=== PATIENT | male | born 1960 ===

== ENCOUNTER 2022-07-08 06:48 | Inpatient (IN) ==
[2022-07-01 12:34] LABS: Basophils % 0.5 % (0.0-0.8); Eosinophils # 0.2 10*3/uL (0.0-0.87); Eosinophils % 2.4 % (0.00-10.9); Hematocrit 43.6 VOL% (42.0-52.0); Hemoglobin 13.5 GM/DL (14.0-18.0); Immature Granulocytes % 0.3 %; Immature Granulocytes Absolute 0.02 #; Lymphocytes # 2.5 10*3/uL (1.4-4.0); Lymphocytes % 33.2 % (21.2-54.2); Mean Corpuscular Volume 82.9 FL (87-102); Monocytes # 0.7 10*3/uL (0.11-0.8); Monocytes % 9.6 % (1.7-12.7); Platelet Count 235 T/CUMM (130-400); Red Blood Count 5.26 MC/CUMM (3.8-5.5); Red Cell Distribution Width 17.3 % (9.3-17.3); White Blood Count 7.4 T/CUMM (4-12)
[2022-07-01 12:41] LABS: INR 0.9; PT Patient Result 10.5 SECS (10.1-12.1)
[2022-07-01 12:54] LABS: Alanine Aminotransferase 27 U/L (16-61); Albumin 3.4 G/DL (3.4-5.0); Alkaline Phosphatase 80 U/L (45-117); Aspartate Amino Transferase 17 U/L (0-37); Bilirubin,Total < 0.39 MG/DL (0.20-1.00); Blood Urea Nitrogen 12 MG/DL (7-18); Calcium 8.9 MG/DL (8.5-10.1); Carbon Dioxide 27 MMOL/L (21-32); Chloride 110 MMOL/L (98-107); Glucose 151 MG/DL (74-106); Osmolality,Calculated 285.1 MOS/KG (273-304); Potassium 4.4 MMOL/L (3.5-5.1); Sodium 142 MMOL/L (136-145); Total Protein 6.9 G/DL (6.4-8.2)
[~2022-07-08 06:48] MED LIST: ceFAZolin 2,000 MG/50 ML DUPLEX IV ONE
[2022-07-08] MEDS ORDERED: LACTATED RINGERS 1,000 ML IV SCH (07:00)
[2022-07-08] MEDS ORDERED: FAMOTIDINE 20 MG TABLET PO ONE (07:51)
[2022-07-08] MEDS ORDERED: DIAZEPAM 5 MG TABLET PO ONE (07:51)
[2022-07-08] MEDS ORDERED: ONDANSETRON 4 MG/2 ML VIAL ONE (08:28)
[2022-07-08] MEDS ORDERED: HEPARIN 10,000 UNIT/10 ML VIAL ONE (08:28)
[2022-07-08] MEDS ORDERED: SEVOFLURANE 1 UNIT/15 MINUTE INH ONE (08:28)
[2022-07-08] MEDS ORDERED: LIDOCAINE 2% 5 ML VIAL ONE (08:28)
[2022-07-08] MEDS ORDERED: propofoL 200 MG/20 ML VIAL IV ONE (08:28)
[2022-07-08] MEDS ORDERED: fentaNYL 100 MCG/2 ML VIAL ONE (08:29)
[2022-07-08] MEDS ORDERED: MIDAZOLAM 2 MG/2 ML VIAL ONE ×2 (08:29→09:12)
[2022-07-08] MEDS ORDERED: ROCURONIUM 50 MG/5 ML VIAL IV ONE (08:30)
[2022-07-08] MEDS ORDERED: HEPARIN 5,000 UNIT/1 ML VIAL ONE ×2 (08:33→10:18)
[2022-07-08] MEDS ORDERED: PHENYLEPHRINE 1 MG/10 ML SYRINGE IV ONE (09:38)
[2022-07-08] MEDS ORDERED: ePHEDrine 50 MG/ML VIAL ONE (10:08)
[2022-07-08] MEDS ORDERED: LACTATED RINGERS 1,000 ML IV ONE (10:26)
[2022-07-08] MEDS ORDERED: PROTAMINE SULFATE 50 MG/5 ML VIAL IV ONE (10:46)
[2022-07-08] MEDS ORDERED: NEOSTIGMINE 10 MG/10 ML VIAL ONE (10:47)
[2022-07-08] MEDS ORDERED: GLYCOPYRROLATE 0.4 MG/2 ML VIAL ONE (10:47)
[2022-07-08] MEDS ORDERED: TISSUE ADHESIVE 1 EACH APPLICATOR TOP ONE (10:52)
[2022-07-08] MEDS ORDERED: ONDANSETRON 4 MG/2 ML VIAL IV PRN ×2 (11:05→11:25)
[2022-07-08] MEDS ORDERED: ALBUTEROL 2.5 MG/3 ML NEB RESP TX PRN (11:07)
[2022-07-08] MEDS ORDERED: [UNRECOGNIZED DRUG - REMARK] PO PRN (11:07)
[2022-07-08] MEDS ORDERED: NITROGLYCERIN SL 0.4 MG TABLET SL PRN (11:08)
[2022-07-08] MEDS: HYDROmorphone 1 MG/1 ML SYRINGE IV PRN ×9 (11:36→23:59)
[2022-07-08] MEDS ORDERED: MEPERIDINE 25 MG/1 ML VIAL IV PRN (12:11)
[2022-07-08] MEDS ORDERED: amLODIPine 5 MG TABLET PO ONE (13:15)
[2022-07-08] MEDS: carvediloL 25 MG TABLET PO SCH (18:00)
[2022-07-08] MEDS: INSULIN GLARGINE 100 UNIT/ML SUBCUT SCH (21:11)
[2022-07-08] MEDS: ROSUVASTATIN 20 MG TABLET PO SCH (21:11)
[2022-07-08] MEDS: MONTELUKAST 10 MG TABLET PO SCH (21:12)
[2022-07-09] MEDS: HYDROmorphone 1 MG/1 ML SYRINGE IV PRN ×5 (02:28→20:50)
[2022-07-09 05:32] LABS: Basophils % 0.3 % (0.0-0.8); Eosinophils # 0.1 10*3/uL (0.0-0.87); Eosinophils % 1.1 % (0.00-10.9); Hematocrit 38.5 VOL% (42.0-52.0); Hemoglobin 12.1 GM/DL (14.0-18.0); Immature Granulocytes % 0.4 %; Immature Granulocytes Absolute 0.04 #; Lymphocytes # 2.1 10*3/uL (1.4-4.0); Lymphocytes % 19.5 % (21.2-54.2); Mean Corpuscular HGB Conc 31.4 GM/DL (32-36); Mean Corpuscular Volume 82.1 FL (87-102); Mean Platelet Volume 10.7 FL (9.6-12.0); Monocytes # 1.4 10*3/uL (0.11-0.8); Monocytes % 13.1 % (1.7-12.7); Neutrophils % 65.6 % (38.7-73.9); Platelet Count 210 T/CUMM (130-400); Red Blood Count 4.69 MC/CUMM (3.8-5.5); Red Cell Distribution Width 18.1 % (9.3-17.3); White Blood Count 10.6 T/CUMM (4-12)
[2022-07-09 05:53] LABS: Calcium 8.2 MG/DL (8.5-10.1); Osmolality,Calculated 278.7 MOS/KG (273-304); Potassium 3.9 MMOL/L (3.5-5.1)
[2022-07-09] MEDS: DAPAGLIFLOZIN 5 MG TABLET PO SCH (08:56)
[2022-07-09] MEDS: APIXABAN 5 MG TABLET PO SCH ×2 (08:57→20:48)
[2022-07-09] MEDS: ASPIRIN CHEW 81 MG TABLET PO SCH (08:57)
[2022-07-09] MEDS: amLODIPine 5 MG TABLET PO SCH (08:57)
[2022-07-09] MEDS: DULoxetine 30 MG CAPSULE PO SCH (08:57)
[2022-07-09] MEDS: carvediloL 25 MG TABLET PO SCH ×2 (08:57→17:08)
[2022-07-09] MEDS: PANTOPRAZOLE 40 MG TABLET PO SCH (08:57)
[2022-07-09] MEDS: SPIRONOLACTONE 25 MG TABLET PO SCH (08:57)
[2022-07-09] MEDS: CLOPIDOGREL 75 MG TABLET PO SCH (08:58)
[2022-07-09] MEDS: Liraglutide [Victoza 3-Pak] 0.6 mg/0.1 mL (18 mg/3 mL) Pen Injec SUBCUT SCH (09:17)
[2022-07-09] MEDS: metFORMIN 500 MG TABLET PO SCH (17:08)
[2022-07-09] MEDS: MONTELUKAST 10 MG TABLET PO SCH (20:48)
[2022-07-09] MEDS: INSULIN GLARGINE 100 UNIT/ML SUBCUT SCH (20:50)
[2022-07-09] MEDS: ROSUVASTATIN 20 MG TABLET PO SCH (21:52)
[2022-07-10] MEDS: HYDROmorphone 1 MG/1 ML SYRINGE IV PRN (00:12)
[2022-07-10 08:32] VITALS: BP 143/61
[2022-07-10] MEDS: SPIRONOLACTONE 25 MG TABLET PO SCH (09:47)
[2022-07-10] MEDS: DAPAGLIFLOZIN 5 MG TABLET PO SCH (09:48)
[2022-07-10] MEDS: amLODIPine 5 MG TABLET PO SCH (09:48)
[2022-07-10] MEDS: carvediloL 25 MG TABLET PO SCH (09:48)
[2022-07-10] MEDS: metFORMIN 500 MG TABLET PO SCH (09:48)
[2022-07-10] MEDS: DULoxetine 30 MG CAPSULE PO SCH (09:48)
[2022-07-10] MEDS: APIXABAN 5 MG TABLET PO SCH (09:48)
[2022-07-10] MEDS: PANTOPRAZOLE 40 MG TABLET PO SCH (09:49)
[2022-07-10] MEDS: CLOPIDOGREL 75 MG TABLET PO SCH (09:49)
[2022-07-10] MEDS: ASPIRIN CHEW 81 MG TABLET PO SCH (09:49)
[2022-07-10] MEDS: Liraglutide [Victoza 3-Pak] 0.6 mg/0.1 mL (18 mg/3 mL) Pen Injec SUBCUT SCH (11:04)
[2022-07-15] MEDS ORDERED: ERGOCALCIFEROL 50,000 UNIT CAPSULE PO SCH (09:00)
== END 2022-07-10 11:50 | disposition home or self-care (01) | DRG 253 ==
LOC: N.SDSINP 06:48 → N.3E 12:59
PROVIDERS: ADMIT Surgery; ATTEND Surgery